=== PATIENT | male | born 1995 | race Two or more races ===

== ENCOUNTER 2019-12-10 16:34 | Emergency (ER) | payer SELFPAY ==
[2019-12-10 16:39] VITALS: BP 145/68
[2019-12-10] MEDS ORDERED: DIPH/PERTUSS(ACELL)/TETANUS VAC/PF 0.5 ML SYR (>=10YO) IM ONE (16:45)
--- NOTE | 2019-12-10 16:47 | ER Document Report ---
ED Medical Screen (RME) - General Chief Complaint: Laceration Stated Complaint: LACERATION/LEFT HAND Time Seen by Provider: 12/10/19 16:41 Mode of Arrival: Ambulatory Information source: Patient Notes: 24-year-old male presented to ED for complaint of pain and laceration to the left thumb. He states he was trying to cut states when he cut his thumb. Patient is alert oriented respirations regular nonlabored speaking in full sentences. He states he does not know when his last tetanus shot was. He has been ordered 1 at this time. Will get x-ray and order tetanus immunization at this time. I have greeted and performed a rapid initial assessment of this patient. A comprehensive ED assessment and evaluation of the patient, analysis of test results and completion of medical decision making process will be conducted by an additional ED providers. - Related Data Allergies/Adverse Reactions: No Known Allergies Allergy (Unverified 12/10/19 16:40) Physical Exam - Vital signs Vitals: Temp Pulse Resp BP Pulse Ox 98.4 F 70 16 145/68 H 99 12/10/19 16:39 12/10/19 16:39 12/10/19 16:39 12/10/19 16:39 12/10/19 16:39 Course - Vital Signs Vital signs: Temp Pulse Resp BP Pulse Ox 98.4 F 70 16 145/68 H 99 12/10/19 16:41 12/10/19 16:39 12/10/19 16:39 12/10/19 16:39 12/10/19 16:39
--- NOTE | 2019-12-10 17:36 | RADIOLOGY REPORT (SQ) ---
EXAM DESCRIPTION: FINGER LEFT IMAGES COMPLETED DATE/TIME: 12/10/2019 5:09 pm REASON FOR STUDY: Laceration left thumb COMPARISON: None. NUMBER OF VIEWS: Three views. TECHNIQUE: AP, lateral, and oblique images acquired of the left thumb. LIMITATIONS: None. FINDINGS: MINERALIZATION: Normal. BONES: No acute fracture or dislocation. No worrisome bone lesions. SOFT TISSUES: No soft tissue swelling. No foreign body. OTHER: No other significant finding. IMPRESSION: NO RADIOGRAPHIC EVIDENCE OF ACUTE INJURY. TECHNICAL DOCUMENTATION: JOB ID: [id number] 2010 [employer]- All Rights Reserved Reading location - IP/workstation name: [email or web address]
[2019-12-10] MEDS ORDERED: LIDOCAINE 1% INJ-PF (10 MG/ML) 30 ML SDV INJ ONE (18:51)
--- NOTE | 2019-12-10 18:52 | ER Document Report ---
ED Wound - General Chief Complaint: Laceration Stated Complaint: LACERATION/LEFT HAND Time Seen by Provider: 12/10/19 16:41 Mode of Arrival: Ambulatory Information source: Patient Notes: 24-year-old male with no previous medical problems presents to emergency room with a laceration to his left hand distal to the left thumb that he sustained while cutting meat with a kitchen knife. Bleeding is controlled. Unknown last tetanus shot. Patient is left-handed. TRAVEL OUTSIDE OF THE [place] IN LAST 30 DAYS: No - Related Data Allergies/Adverse Reactions: No Known Allergies Allergy (Unverified 12/10/19 16:40) Past Medical History - General Information source: Patient - Social History Smoking Status: Current Every Day Smoker Frequency of alcohol use: None Drug Abuse: None Family History: Reviewed & Not Pertinent Patient has homicidal ideation: No Review of Systems - Review of Systems Constitutional: No symptoms reported EENT: No symptoms reported Cardiovascular: No symptoms reported Musculoskeletal: No symptoms reported Skin: Other - Laceration Neurological/Psychological: No symptoms reported Physical Exam - Vital signs Vitals: Temp Pulse Resp BP Pulse Ox 98.4 F 70 16 145/68 H 99 12/10/19 16:39 12/10/19 16:39 12/10/19 16:39 12/10/19 16:39 12/10/19 16:39 - General General appearance: Appears well, Alert In distress: Mild - Respiratory Respiratory status: No respiratory distress Chest status: Nontender Breath sounds: Normal Chest palpation: Normal - Cardiovascular Rhythm: Regular Heart sounds: Normal auscultation Murmur: No - Extremities General lower extremity: Normal inspection Hand: Laceration - Left hand palmar aspect distal to left thumb with a 4 cm laceration. No obvious tendon injury. Bleeding is controlled. Full range of motion with flexion and extension to the left thumb. - Neurological Neuro grossly intact: Yes Cognition: Normal Orientation: AAOx4 [place] Coma Scale Eye Opening: Spontaneous [place] Coma Scale Verbal: Oriented [place] Coma Scale Motor: Obeys Commands [place] Coma Scale Total: 15 Speech: Normal Motor strength normal: LUE, RUE, LLE, RLE Sensory: Normal Notes: Positive left radial pulse. Capillary refill less than 3 seconds. Able to feel light and painful stimuli. Neurovascularly intact. - Skin Skin Temperature: Warm Skin Moisture: Dry Skin Color: Normal Skin irregularity: Laceration - 4 cm laceration noted to the palmar aspect of the left hand distal to the left thumb. There is no obvious tendon injury. Bleeding is controlled. Location of irregularity: Extremities Course - Re-evaluation Re-evalutation: 12/10/19 19:45 Wound was cleansed and sutured as documented. Patient was counseled on proper wound care. Sutures out in 8 days. Patient was given strict return to the emergency room guidelines. Return for any new or worsening symptoms. All questions were answered. Patient verbalized understanding and agrees with plan of care. - Vital Signs Vital signs: Temp Pulse Resp BP Pulse Ox 98.4 F 70 16 145/68 H 99 12/10/19 16:41 12/10/19 16:39 12/10/19 16:39 12/10/19 16:39 12/10/19 16:39 - Diagnostic Test Radiology reviewed: Reports reviewed Procedures - Laceration/Wound Repair Left Hand Time completed: 19:43 Wound length (cm): 4 Wound's Depth, Shape: Superficial, Linear Laceration pre-procedure: Sterile PPE donned, Sterile drapes applied, Shur-Clens applied Anesthetic type: 1% Lidocaine Volume Anesthetic (mLs): 3 Wound explored: Clean Irrigated w/ Saline (mLs): 50 Wound Repaired With: Sutures Suture Size/Type: 4:0, Ethilon Number of Sutures: 7 Layer Closure?: No Post-procedure wound care: Sterile dressing applied Post-procedure NV exam normal: Yes Complications: No Discharge - Discharge Clinical Impression: Laceration of left hand Qualifiers: Encounter type: initial encounter Foreign body presence: without foreign body Qualified Code(s): S61.412A - Laceration without foreign body of left hand, initial encounter Condition: Stable Disposition: HOME, SELF-CARE Instructions: Laceration Care (OM), Tetanus Immunization Given ([facility]) Additional Instructions: You can remove the dressing in 24 hours. Keep wound open and clean and dry. Do not get sutures wet. Suture removal 8 days. You can return to the emergency room or go to an urgent care for your suture removal. Please return to , the ED, or an urgent care in 8 days for suture removal. Return immediately if you develop spreading redness around the wound, pus from the wound, worsening pain, or a fever of >100.4. Keep the area clean and dry. Wash gently with soap and water twice daily and cover with antibiotic ointment.
== END 2019-12-10 20:07 | disposition home or self-care (01) ==
LOC: ER 16:34
DX: S61.412A Laceration without foreign body of left hand, initial encounter (principal); W26.0XXA Contact with knife, initial encounter; Y93.89 Activity, other specified; F17.200 Nicotine dependence, unspecified, uncomplicated; Z23 Encounter for immunization
CPT/HCPCS: 90471; 90715; 99283